=== PATIENT | male | born 1950 | race Caucasian/White ===

== ENCOUNTER → 2018-01-04 | Outpatient (CLI) | payer MEDICARE, OTHER | LOC: COL.RAD 13:02 | DX: M75.102 Unspecified rotator cuff tear or rupture of left shoulder, not specified as traumatic (principal); M75.80 Other shoulder lesions, unspecified shoulder; Z95.810 Presence of automatic (implantable) cardiac defibrillator | CPT/HCPCS: Q9967 ==